=== PATIENT | female | born 1970 | race Caucasian/White ===

== ENCOUNTER → 2022-03-15 | Day surgery (SDC) | payer OTHER ==
[~2022-03-15] VITALS: Ht 152.4 cm; Wt 87.1 kg
[~2022-03-15] MED LIST: BUPROPION XL300 MG PO; ESTRADIOL1 EACH TOP; FOLIC ACID1 M1 PO; LEVOTHYROXINE25 MCG PO; SERTRALINE HCL100 MG PO
[2022-03-15 07:54] LABS: HCT 40.8 % (37.0-47.0); HGB 13.6 g/dl (12.5-16.0); MCH 30.8 pg (25.0-31.0); MCHC 33.3 g/dL (32.0-36.0); MCV 92.5 fL (78.0-100.0); MPV 10.2 fL (6.0-9.5); RBC 4.41 M/uL (4.20-5.40); WBC 5.4 K/uL (4.0-10.5)
[2022-03-15 08:10] LABS: BILIRUBIN - TOTAL 0.5 mg/dL (0.2-1.0); BUN/CREAT RATIO (CALC) 15.1 RATIO; CREATININE 0.93 mg/dL (0.51-0.95); GLOBULIN (CALCULATION) 4.1 g/dL; POTASSIUM 4.5 mmol/L (3.5-5.1); TOTAL PROTEIN 8.1 g/dL (6.4-8.2)
== END | disposition home or self-care (01) ==
LOC: FAS 07:28
PROVIDERS: Surgery
DX: K29.50 Unspecified chronic gastritis without bleeding (principal); B96.81 Helicobacter pylori [H. pylori] as the cause of diseases classified elsewhere; K44.9 Diaphragmatic hernia without obstruction or gangrene; K21.9 Gastro-esophageal reflux disease without esophagitis; K56.609 Unspecified intestinal obstruction, unspecified as to partial versus complete obstruction; D50.0 Iron deficiency anemia secondary to blood loss (chronic); R74.8 Abnormal levels of other serum enzymes; R25.1 Tremor, unspecified; E03.9 Hypothyroidism, unspecified; Z88.6 Allergy status to analgesic agent; Z79.899 Other long term (current) drug therapy
CPT/HCPCS: 36415; 80053; J0690; J1610; J2250; J2704; J7120